=== PATIENT | female | born 1940 | race Caucasian/White ===

== ENCOUNTER 2020-03-04 10:40 | Emergency (ER) | payer MEDICARE, OTHER ==
[~2020-03-04] VITALS: Ht 165.1 cm; Wt 100.0 kg
[2020-03-04 11:45] LABS: BILIRUBIN,URINE MODERATE (NEG); CLARITY,URINE TURBID; COLOR,URINE ORANGE; NITRITE,URINE POSITIVE (NEG); PROTEIN,URINE 100 mg/dL (NEG-TRACE)
--- NOTE | 2020-03-04 11:48 | PHYS DOC ---
Past Medical History Past Medical History: Dementia, High Cholesterol Additional Past Medical Histor: parkinsons Past Surgical History: Cholecystectomy, Knee Replacement Additional Past Surgical Histo: back sx, deep brain sx for parkinsons Smoking Status: Former Smoker Alcohol Use: None General Adult EDM: Chief Complaint: PAIN ON URINATION HPI: HPI: Patient is a 79 year old female with history of UTI who presents the ED today with dysuria that began 2 days ago. Also complaining of mild intermittent bilateral flank pain for 2 days. Patient denies any fever, hematuria, nausea, vomiting. She states this is a typical presentation for UTI. Denies any history of kidney stones. Review of Systems: Review of Systems: Constitutional: Denies fever or chills. [] Eyes: Denies change in visual acuity. [] HENT: Denies nasal congestion or sore throat. [] Respiratory: Denies cough or shortness of breath. [] Cardiovascular: Denies chest pain or edema. [] GI: Denies abdominal pain, nausea, vomiting, bloody stools or diarrhea. [] : Reports dysuria and flank pain Musculoskeletal: Denies back pain or joint pain. [] Integument: Denies rash. [] Neurologic: Denies headache, focal weakness or sensory changes. [] Psychiatric: Denies depression or anxiety. [] Heart Score: Risk Factors: Risk Factors: DM, Current or recent (<one month) smoker, HTN, HLP, family history of CAD, obesity. Risk Scores: Score 0 - 3: 2.5% MACE over next 6 weeks - Discharge Home Score 4 - 6: 20.3% MACE over next 6 weeks - Admit for Clinical Observation Score 7 - 10: 72.7% MACE over next 6 weeks - Early Invasive Strategies Allergies: Allergies: Allergies Coded Allergies Type Severity Reaction Last Updated Verified Sulfa (Sulfonamide Antibiotics) Allergy Unknown 03/04/20 Yes Physical Exam: PE: Constitutional: Well developed, well nourished, no acute distress, non-toxic appearance. [] HENT: Normocephalic, atraumatic, bilateral external ears normal, oropharynx moist, no oral exudates, nose normal. [] Eyes: PERRLA, EOMI, conjunctiva normal, no discharge. [] Neck: Normal range of motion, no tenderness, supple, no stridor. [] Cardiovascular:Heart rate regular rhythm, no murmur [] Lungs & Thorax: Bilateral breath sounds clear to auscultation [] Abdomen: Bowel sounds normal, soft, no tenderness, no masses, no pulsatile masses. [] Skin: Warm, dry, no erythema, no rash. [] Back: No tenderness, no CVA tenderness. [] Extremities: No tenderness, no cyanosis, no clubbing, ROM intact, no edema. [] Neurologic: Alert and oriented X 3, normal motor function, normal sensory function, no focal deficits noted. [] Psychologic: Affect normal, judgement normal, mood normal. [] Current Patient Data: Vital Signs: Vital Signs Date Time Temp Pulse Resp B/P (MAP) Pulse Ox O2 Delivery O2 Flow Rate FiO2 03/04/20 10:40 98.7 82 17 135/61 (85) 94 Room Air 98.7 EKG: EKG: [] Radiology/Procedures: Radiology/Procedures: [] Course & Med Decision Making: Course & Med Decision Making Pertinent Labs and Imaging studies reviewed. (See chart for details) This is a 79-year-old female patient presented to the ED today with dysuria and flank pain for 2 days. Positive for UTI, discharged on cephalexin. Encouraged to push fluids. Follow-up with primary care doctor in 1 week Yuridia Disclaimer: Yuridia Disclaimer: This electronic medical record was generated, in whole or in part, using a voice recognition dictation system. Departure Departure Impression: Primary Impression: UTI (urinary tract infection) Qualified Codes: N39.0 - Urinary tract infection, site not specified Disposition: 01 [place] HOME SELF CARE/HOMELESS Condition: STABLE Referrals: VEGA AVALOS (PCP) follow up with your doctor in the next one week Patient Instructions: Urinary Tract Infection Additional Instructions: You have urinary tract infection, you were given Rocephin injection in the ED. Take the prescribed antibiotics until completed. Push fluids. Take Tylenol as needed for pain. Follow-up with your doctor in the next 1 week. Come back to the ED at any point symptoms worsen. Scripts Cephalexin (CEPHALEXIN) 500 Mg Tablet 1 TAB PO BID, #14 TAB Prov: ARNULFO ALEXANDER APRN 03/04/20 ARNULFO ALEXANDER APRN Mar 04, 2020 11:48
[2020-03-04 12:11] LABS: RBC,URINE >40 /HPF (0-2)
[2020-03-04 12:12] LABS: BACTERIA,URINE MODERATE /HPF (0-FEW); WBC,URINE TNTC /HPF (0-4)
[2020-03-04] MEDS ORDERED: CEPH500T PO (12:24)
[2020-03-04] MEDS ORDERED: cefTRIAXone IM 1 GM VIAL IM ONE (12:30)
[2020-03-04] MEDS ORDERED: LIDOCAINE 1% PF 2 ML VIAL. INJ ONE (12:30)
[2020-03-04 13:22] VITALS: BP 140/84
== END 2020-03-04 15:49 | disposition home or self-care (01) ==
LOC: ER 10:40
DX: N39.0 Urinary tract infection, site not specified (principal); E78.00 Pure hypercholesterolemia, unspecified; F03.90 Unspecified dementia, unspecified severity, without behavioral disturbance, psychotic disturbance, mood disturbance, and anxiety; Z90.49 Acquired absence of other specified parts of digestive tract; Z87.891 Personal history of nicotine dependence; Z88.2 Allergy status to sulfonamides
CPT/HCPCS: 81001; 87077; 87086; 87186; 96372; 99284; J0696; J3490